=== PATIENT | female | born 1980 | race Caucasian/White ===

== ENCOUNTER 2024-05-06 07:19 | Outpatient (CLI) | payer BC ==
[2024-05-06] MEDS ORDERED: E-Z-HD 98% W/W 340GM BOT (x-ray ONLY) ONE (07:38)
[2024-05-06] MEDS ORDERED: Barium Sulfate 96% 176 GM BOT (xray ONLY) ONE (07:38)
== END 2024-05-06 07:20 | disposition home or self-care (01) ==
LOC: RAD 07:19
PROVIDERS: ATTEND Surgery
DX: K95.09 Other complications of gastric band procedure (principal)
CPT/HCPCS: 74246

== ENCOUNTER 2024-09-06 07:58 | Outpatient (CLI) | payer BC | END 2024-09-06 07:59 | disposition home or self-care (01) | LOC: BICMAMMO 07:58 | PROVIDERS: ATTEND Family Medicine | DX: R92.2 Inconclusive mammogram (principal); R92.1 Mammographic calcification found on diagnostic imaging of breast | CPT/HCPCS: G0279 ==